=== PATIENT | male | born 1955 | race Caucasian/White ===

== ENCOUNTER 2023-05-11 09:08 | Emergency (ER) | payer MEDICARE ==
[~2023-05-11] VITALS: Ht 170.2 cm; Wt 66.0 kg
--- NOTE | 2023-05-11 10:15 | NUR ---
AIRWAY IS PATENT. RESPIRATIONS APPEAR EVEN AND UNLABORED. RADIAL PULSE IS 72.
[2023-05-11] MEDS ORDERED: SYN0.088T PO (10:51)
[2023-05-11 11:11] VITALS: BP 123/72; PULSE 68; RESP 16; TEMP 98; O2SAT 97
--- NOTE | 2023-05-11 12:18 | NUR ---
i AGREE WITH THE ASSESSMENT PER Leonel VALENTINE LVN.
== END 2023-05-11 12:33 | disposition home or self-care (01) ==
LOC: ER 09:09
DX: E03.9 Hypothyroidism, unspecified (principal); Z76.0 Encounter for issue of repeat prescription
CPT/HCPCS: 99281